=== PATIENT | male | born 1985 | race African-American/Black ===

== ENCOUNTER 2020-11-05 08:14 | Emergency (ER) | payer OTHER, SELFPAY ==
[2020-11-05 08:24] VITALS: BP 141/75; PULSE 98; RESP 18; TEMP 36.6; O2SAT 99; BMI 24.4
--- NOTE | 2020-11-05 08:26 | ED.SKABFB ---
HPI - Skin/Abscess/Foreign Bdy General Chief complaint: Extremity Problem Stated complaint: RASH Time Seen by Provider: 11/05/20 08:25 Source: patient Mode of arrival: ambulatory Limitations: no limitations History of Present Illness HPI narrative: 35-year-old male came in for evaluation of bilateral feet rashes, rash started about 2 weeks ago, was seen at [facility] was prescribed it some local cream without relief. Patient declined any fever chills, no pain. Related Data Previous Rx's Medication Instructions Recorded ketoconazole-miconazole [Pedizol See Rx Instructions .ROUTE 11/05/20 Ashwin] .COMPLEX #10 ea Allergies Allergy/AdvReac Type Severity Reaction Status Date / Time No Known Allergies Allergy Verified 11/05/20 08:33 Review of Systems Review of Systems: All other systems are reviewed and are negative Constitutional: Reports as per HPI and Reports no additional constitutional complaints Eyes: Reports as per HPI and Reports no additional eye complaints Reports system reviewed and no additional complaints, except as documented Cardiovascular: Reports as per HPI and Reports no additional cardiovascular complaints Respiratory: Reports as per HPI and Reports no additional respiratory complaints Gastrointestinal: Reports as per HPI and Reports no additional gastrointestinal complaints Genitourinary: Reports no additional female genitourinary complaints Musculoskeletal: Reports no additional musculoskeletal complaints Skin/Breast: Reports system reviewed and no additional complaints, except as docu Psychiatric: Reports no additional psychiatric complaints Endocrine: Reports no additional endocrine complaints Hematologic/Lymphatic: Reports no additional hematologic/lymphatic complaints Allergic/Immunologic: Reports no additional allergic/immunologic complaints Reports system reviewed and no additional complaints, except as documented and Reports Abnormal speech present [facility] Social History Social History Advance Directives: No Advance Directives Information Provided: No Physical Exam Vital Signs: Vital Signs: Vital signs have been reviewed as appeared to be correct. Blood pressure normal. Heart rate normal. Respiration rate normal. Temperature normal. Oxygen saturation normal. Appearance: Alert. Oriented X3. No acute distress. Head: Normal external exam. Normocephalic. Atraumatic. No Christensen signs noted. No raccoon eyes noted Eyes: PERRLA. EOMI. Conjunctiva and sclera normal. Eyelids normal. ENT: TM's Normal. Pharynx normal. Uvula midline. Moist mucous membranes. No trismus noted. No drooling noted. No muffled voice noted. Neck: Normal inspection. Neck supple. FROM. No adenopathy. Thyroid Normal. No meningeal signs. No neck mass noted. CVS: Normal heart rate and rhythm. Heart sound normal. No murmurs noted. Pulses normal throughout. Respiratory: No respiratory distress. Painless inspiration. Breath sounds normal. No wheezes/rales/rhonchi noted. Chest nontender. No accessory muscle usage noted or decreased air movement noted. Abdomen: Soft and nontender. Bowel sounds normal in all 4 quadrants. No distention noted. No organomegaly noted. No visible injury noted. Back: No CVA tenderness. Full range of motion noted. Skin: Skin warm and dry. Normal skin color. Normal skin turgor. No rashes/lesions/lacerations noted. Extremities: areas 3x4 cm on the lateral aspect of the left foot, and small areas in the toe webs. Area of 2 x 3 cm on the lateral aspect of the right foot, no fluctuation, no abscess. Neuro: Oriented X 3. No motor deficit. No sensory deficit. Reflexes normal. Course Course Course Narrative: Assessment and plan. 35-year-old male came in with atypical rash on bilateral feet appear to be a fungal infection will start the patient on ketoconazole ointment and close follow-up. Discharge Plan Discharge Clinical Impression: Fungal infection of foot Patient Disposition: Home, Self-Care Instructions: Skin Yeast Infection (ED) Prescriptions: New Pedizol Ashwin 2-2 % kit, cream and solution See Rx Instructions .ROUTE .COMPLEX Qty: 10 RF: 0 Referrals: Kehinde Guy MD [Primary Care Provider] - 2 days
== END 2020-11-05 08:46 | disposition home or self-care (01) ==
PROVIDERS: Emergency Provider Emergency Medicine; PCP Family Medicine
DX: B35.3 Tinea pedis (principal)
CPT/HCPCS: 99283